=== PATIENT | male | born 1965 | race Caucasian/White ===

== ENCOUNTER 2016-09-06 09:16 | Emergency (ER) | payer OTHER ==
[~2016-09-06] VITALS: Ht 175.3 cm; Wt 71.0 kg
[2016-09-06] MEDS ORDERED: SODIUM CHLORIDE 0.9% 1,000ML IV ONE (10:00)
[2016-09-06] MEDS ORDERED: SODIUM CHLORIDE FLUSH 10ML SYR IVF ONE (10:00)
[2016-09-06] MEDS ORDERED: KETOROLAC 30 MG/1 ML IVPush ONE (10:00)
[2016-09-06] MEDS ORDERED: ONDANSETRON 2MG/ML, 2ML IVPush ONE (10:00)
[2016-09-06] MEDS ORDERED: DIAZEPAM 5 MG/ML, 2ML IVPush ONE (10:00)
[2016-09-06] MEDS ORDERED: MORPHINE SULFATE 4 MG/ML, 1ML IVPush PRN (10:00)
[2016-09-06] MEDS ORDERED: KETOROLAC 30 MG/1 ML ONE ×2 (10:05)
[2016-09-06] MEDS ORDERED: ONDANSETRON 2MG/ML, 2ML ONE (10:05)
[2016-09-06] MEDS ORDERED: MORPHINE SULFATE 4 MG/ML, 1ML ONE (10:05)
[2016-09-06] MEDS ORDERED: DIAZEPAM 5 MG/ML, 2ML ONE (10:05)
[2016-09-06 10:25] LABS: ASPARTATE AMINO TRANSFERASE 26 U/L (15-37); BLOOD UREA NITROGEN 19 mg/dL (7-18)
[2016-09-06 12:18] VITALS: BP 123/83
== END 2016-09-06 12:25 | disposition home or self-care (01) ==
LOC: ED 10:39
DX: S39.012A Strain of muscle, fascia and tendon of lower back, initial encounter (principal); M54.5 Low back pain; X58.XXXA Exposure to other specified factors, initial encounter; Y93.89 Activity, other specified; Y99.8 Other external cause status; Y92.89 Other specified places as the place of occurrence of the external cause
CPT/HCPCS: 36415; 72110; 80053; 81003; 85025; 96361; 96374; 96375; 99285; J1885; J2405; J3360; J7030

== ENCOUNTER 2016-09-08 12:27 | Emergency (ER) | payer OTHER ==
[~2016-09-08] VITALS: Ht 175.3 cm; Wt 74.1 kg
[2016-09-08 13:20] LABS: BLOOD UREA NITROGEN 14 mg/dL (7-18)
[2016-09-08 15:03] VITALS: BP 111/71
== END 2016-09-08 15:05 | disposition home or self-care (01) ==
LOC: ED 12:55
DX: S39.012A Strain of muscle, fascia and tendon of lower back, initial encounter (principal); X58.XXXA Exposure to other specified factors, initial encounter; Y93.89 Activity, other specified; Y92.89 Other specified places as the place of occurrence of the external cause; Y99.8 Other external cause status
CPT/HCPCS: 36415; 72148; 80048; 82040; 85025

== ENCOUNTER → 2016-09-13 | Outpatient (CLI) | payer OTHER | END | disposition home or self-care (01) | LOC: CFH 08:00 → MERGE 08:00 | PROVIDERS: ATTEND Physical Medicine & Rehabilitation | DX: R10.2 Pelvic and perineal pain (principal); M54.5 Low back pain | CPT/HCPCS: 72195 ==

== ENCOUNTER → 2016-09-17 | Outpatient (CLI) | payer OTHER | END | disposition home or self-care (01) | LOC: PETCFH 07:26 → MERGE 08:00 | PROVIDERS: ATTEND Physical Medicine & Rehabilitation | DX: M54.5 Low back pain (principal); R10.2 Pelvic and perineal pain | CPT/HCPCS: 78306; A9503 ==